=== PATIENT | female | born 1975 | race Caucasian/White ===

== ENCOUNTER 2017-05-19 19:21 | Emergency (ER) | payer OTHER, SELFPAY ==
[2017-05-19 20:01] LABS: #Basophils 0.1 thou/uL (0.0-0.2); #Eosinphils 0.2 thou/uL (0.0-0.7); #Lymphocytes 2.3 thou/uL (1.20-3.40); #Monocytes 0.7 thou/uL (0.11-0.59); #Neutrophils 7.6 thou/uL (1.40-6.50); %Basophils 0.5 % (0.0-1.0); %Eosinophils 2.1 % (0.0-10.0); %Lymphocytes 21.5 % (21.0-51.0); %Monocytes 6.5 % (0.0-10.0); %Neutrophils 69.3 % (42.0-75.0); Hemoglobin 14.9 g/dL (12.0-16.0); Mean Corpuscular HGB CONC 34.5 g/dL (32.0-36.0); Mean Corpuscular Hemoglobin 32.7 pg (27.0-31.0); Mean Platelet Volume 6.7 fL (7.4-10.4); Platelet Count 482 thou/uL (130-400); Red Blood Cell (RBC) Count 4.54 mill/uL (4.20-5.40); White Blood Cell (WBC) Count 10.9 thou/uL (4.8-10.8)
[2017-05-19 20:27] LABS: ALT (SGPT) 32 U/L (8-55); AST (SGOT) 21 U/L (5-34); Albumin 4.2 g/dL (3.5-5.0); Alkaline Phosphatase 69 U/L (40-150); Anion Gap 10 mmol/L (10-20); BUN (Urea Nitrogen) 12 mg/dL (7.0-18.7); Bilirubin, Total 0.3 mg/dL (0.2-1.2); Calc. Creatinine Clearance 0 mL/min (70-130); Calcium 9.3 mg/dL (7.8-10.44); Carbon Dioxide 27 mmol/L (22-29); Chloride 106 mmol/L (98-107); Estimated GFR-MDRD Greater than 90; Globulin 3.4 g/dL (2.4-3.5); Glucose 99 mg/dL (70-105); Potassium 3.8 mmol/L (3.5-5.1); Protein, Total 7.6 g/dL (6.0-8.3); Sodium 139 mmol/L (136-145)
[2017-05-19 21:10] LABS: Bilirubin Negative (Negative); Blood, Urine Negative (Negative); Clarity CLOUDY (Clear); Glucose, Urine (Dipstick) Negative (Negative); Leukocyte Moderate (Negative); Nitrite Negative (Negative); Protein, Urine (Dipstick) Negative (Neg-Trace); Specific Gravity, Urine 1.025 (1.002-1.036); Urobilinogen 0.2 mg/dL (0.2-1.0); pH, Urine 6.5 (5.0-9.0)
[2017-05-19 21:13] LABS: Bacteria/HPF 1+ HPF (None Seen); Hyaline Casts/LPF 0-3 HYALINE CAST LPF (0-3 Hyaline); Pathc Cast-AUWi Flag 0.54 (0-2.49); RBC/HPF 0-3 HPF (0-3); WBC/HPF 21-50 HPF (0-3)
[2017-05-19 21:44] LABS: BHCG - Serum Negative (NEGATIVE); Pregs Control Background? CLEAR/WHITE (CLR/WHITE); Pregs Control Bar Appear? YES (CONTROL BAR)
[2017-05-19] MEDS ORDERED: Ketorolac Tromethamine 30 MG/ML VIAL ONE (23:11)
[2017-05-19] MEDS ORDERED: Ondansetron HCl/PF 4 MG/2 ML Vial ONE (23:11)
--- NOTE | 2017-05-19 23:12 | ULT ---
PELVIC ULTRASOUND: Technique: Transabdominal and endovaginal ultrasound of the pelvis performed. History: Pelvic pain. Patient is post hysterectomy. Patient is also post left oophorectomy. FINDINGS: The cervix appears to be retained and there is nabothian cyst in the cervical remnant measuring appro ximately 1 to 1.5 cm. The right ovary is identified. There is a follicular type cyst in the right ovary measures approximat aida 1.5 cm. There is a large somewhat complex cystic mass in the left adnexa measuring 6 to 9 cm. Etiology is not apparent on this exam. IMPRESSION: 1. Large complex cystic mass in the left adnexa. Technologist gives a history of prior left oophorect alejandra. Recommend clinical correlation regarding the history. 2. There is a right ovary identified and small right follicular cyst noted. 3. Patient appears to have a retained cervix with nabothian cyst in this cervix. POS: [facility]
== END 2017-05-20 01:09 | disposition home or self-care (01) ==
LOC: ERS 19:21
DX: R19.00 Intra-abdominal and pelvic swelling, mass and lump, unspecified site (principal); I10 Essential (primary) hypertension; Z79.899 Other long term (current) drug therapy
CPT/HCPCS: 36415; 76856; 80053; 81003; 81015; 84703; 85025; 93976; 96361; 96372; 96374; 96375; J1885; J2405

== ENCOUNTER 2018-06-01 09:01 | Outpatient (CLI) | payer OTHER | END 2018-06-01 09:02 | disposition home or self-care (01) | LOC: BICMAMMO 09:01 | PROVIDERS: ATTEND Family Medicine | DX: Z12.31 Encounter for screening mammogram for malignant neoplasm of breast (principal) | CPT/HCPCS: 77063; 77067 ==

== ENCOUNTER 2018-12-30 09:37 | Outpatient (CLI) | payer BC ==
--- NOTE | 2018-12-30 10:44 | ULT ---
TRANSABDOMINAL TRANSVAGINAL PELVIC ULTRASOUND DATE:: 12/30/2018 12:00 AM CLINICAL HISTORY: Left lower quadrant abdominal pain off and on; history of left oophorectomy 11 year s ago. COMPARISON: Prior pelvic ultrasound dated May 19, 2017 and July 22, 2016 comparison was also mad e with a CT the abdomen and pelvis dated July 22, 2016 TECHNIQUE: Grayscale, color Doppler and spectral Doppler images were obtained of the pelvis see a tra nsabdominal transvaginal approach Uterus: Surgically absent. There are nabothian cysts seen within the residual cervix. Ovaries: Size: right measures 3.2 x 2.7 x 2.6 cm cm; left ovary is reportedly surgically absent. Mass: There is a complex cystic mass in the region of the left adnexa measuring 4.3 x 3.9 x 2.7 cm wi th vascular flow documented within the solid components of the mass. The complex cystic mass in the left adnexa previously measured 7.6 x 5.6 cm. Flow: Normal flow to the right ovary Cul-de-sac: No free fluid IMPRESSION: Persistent complex cystic mass within the region of the left adnexa. The complex cystic mass has slig htly decreased in size now measuring 4.3 x 3.9 x 2.7 cm whereas it previously measured 7.6 x 5.6 cm. The persistence of a complex cystic mass is somewhat concerning for residual malignancy with the patient's history of a left oophorectomy. Would recommend a follow-up MRI of the pelvis with and without contrast for better interrogation of this lesion. Small nabothian cyst seen within the residual cervix. Changes of hysterectomy.
== END 2018-12-30 09:38 | disposition home or self-care (01) ==
LOC: BICULT 09:37
PROVIDERS: ATTEND Nurse Practitioner Family
DX: R10.32 Left lower quadrant pain (principal); N83.8 Other noninflammatory disorders of ovary, fallopian tube and broad ligament; N88.8 Other specified noninflammatory disorders of cervix uteri; Z90.710 Acquired absence of both cervix and uterus
CPT/HCPCS: 76856

== ENCOUNTER 2019-02-01 06:22 | Inpatient (IN) | payer BC ==
[2019-02-01 07:06] LABS: #Basophils 0.1 thou/uL (0.0-0.2); #Eosinphils 0.1 thou/uL (0.0-0.7); #Lymphocytes 1.7 thou/uL (1.20-3.40); #Monocytes 0.5 thou/uL (0.11-0.59); #Neutrophils 10.2 thou/uL (1.40-6.50); %Basophils 0.4 % (0.0-1.0); %Eosinophils 0.7 % (0.0-10.0); %Lymphocytes 13.8 % (21.0-51.0); %Monocytes 4.2 % (0.0-10.0); %Neutrophils 80.9 % (42.0-75.0); Hemoglobin 15.2 g/dL (12.0-16.0); Mean Corpuscular Hemoglobin 31.3 pg (27.0-31.0); Mean Corpuscular Volume 92.1 fL (78.0-98.0); Mean Platelet Volume 6.7 fL (7.4-10.4); Platelet Count 525 thou/uL (130-400); Red Blood Cell (RBC) Count 4.83 mill/uL (4.20-5.40); White Blood Cell (WBC) Count 12.6 thou/uL (4.8-10.8)
[2019-02-01 07:13] LABS: ALT (SGPT) 17 U/L (8-55); AST (SGOT) 12 U/L (5-34); Albumin 4.4 g/dL (3.5-5.0); Alkaline Phosphatase 62 U/L (40-110); Anion Gap 12 mmol/L (10-20); BUN (Urea Nitrogen) 8 mg/dL (7.0-18.7); Bilirubin, Total 0.4 mg/dL (0.2-1.2); Calc. Creatinine Clearance 0 mL/min (70-130); Calcium 9.3 mg/dL (7.8-10.44); Carbon Dioxide 27 mmol/L (22-29); Chloride 100 mmol/L (98-107); Estimated GFR-MDRD Greater than 90; Globulin 3.2 g/dL (2.4-3.5); Glucose 116 mg/dL (70-105); Potassium 3.9 mmol/L (3.5-5.1); Protein, Total 7.6 g/dL (6.0-8.3); Sodium 135 mmol/L (136-145)
[2019-02-01] MEDS ORDERED: diphenhydrAMINE 50 MG/ML VIAL ONE (07:40)
[2019-02-01] MEDS ORDERED: Morphine 4 MG/ML VIAL ONE (07:40)
[2019-02-01] MEDS ORDERED: Ondansetron PF 4 MG/2 ML Vial ONE (07:42)
[2019-02-01 08:17] LABS: Bacteria/HPF None Seen HPF (None Seen); Bilirubin Negative (Negative); Blood, Urine Negative (Negative); Clarity Clear (Clear); Glucose, Urine (Dipstick) Normal (Negative); Leukocyte 25 Leu/uL (Negative); Nitrite Negative (Negative); Protein, Urine (Dipstick) Negative (Neg-Trace); RBC/HPF 0-3 HPF (0-3); Squamous Epithelial 0-3 HPF (0-3); Urobilinogen Normal mg/dL (Less than 2); WBC/HPF 0-3 HPF (0-3)
--- NOTE | 2019-02-01 08:30 | CT ---
CT of abdomen and pelvis: 02/01/2019 COMPARISON: None available HISTORY: Left-sided flank pain TECHNIQUE: Axial CT imaging is obtained at 5 mm intervals from the lung bases through the pubic symph ysis with IV contrast. Coronal and sagittal reformatted imaging obtained. FINDINGS: The imaged lung bases are unremarkable. No free intraperitoneal air or fluid is seen. The liver, gallbladder, spleen, pancreas, adrenal glands, and kidneys demonstrate no acute findings. There is a tiny hypodensity in the lower pole of the left kidney measuring 6 mm. Evaluation of the bowel is limited without oral contrast media. There is no evidence for bowel inflam matory change or bowel obstruction. The appendix is unremarkable. There is a lobulated cystic mass in the left adnexal region which appears ovarian in origin, measurin g approximately 5.7 x 5.1 x 4.1 cm. This left sided cystic pelvic mass is better assessed on pelvic ultrasound performed on 01/30/2019. Vascular structures of the abdomen/pelvis appear patent. No acute osseous abnormality is evident. The re is disc space narrowing with posterior osteophyte formation and vacuum disc formation at the L5-S1 level. There is multilevel lower lumbar spine facet hypertrophy. IMPRESSION: Stable lobulated cystic left pelvic mass, better assessed on the pelvic ultrasound perfor med 01/30/2019.
[2019-02-01] MEDS ORDERED: Fentanyl 100 MCG/2 ML VIAL ONE (08:38)
[2019-02-01] MEDS ORDERED: ISOVUE-370 76%-LOCM 1 ML ONE (10:22)
[2019-02-01 10:38] VITALS: BMI 36.3
[2019-02-01] MEDS ORDERED: Lisinopril 20 MG TAB PO SCH (11:30)
[2019-02-01] MEDS ORDERED: Morphine 2 MG/ML SYRINGE SLOW IVP PRN (11:35)
--- NOTE | 2019-02-01 11:42 | HP ---
REGULAR PHYSICIAN: Shane Strong MD CHIEF COMPLAINT: Persistent pelvic pain. HISTORY OF PRESENT ILLNESS: Ms. Gibson is a 43-year-old white G3, P2, who was admitted just this week in with complaints of persistent pelvic pain. She was treated with IV pain medicine and was sent home with Vicodin. It is uncertain whether she filled this or not, but she returns to the ER with almost identical complaints this morning complaining of 10/10 pelvic pain. Of note is the fact that Dr. Strong has her scheduled for surgery on Friday. The patient has longstanding pelvic pain and has a known pelvic mass, most likely an endometrioma. I have spoke with Dr. Strong and he has asked me to admit her for pain control in preparation for her surgery on Friday. PAST OBSTETRIC AND GYNECOLOGIC HISTORY: She has had 2 vaginal deliveries as well as 1 . Of note is she apparently had an ovarian cystectomy by Dr. Luiz Vega many years ago, followed by a supracervical hysterectomy by Dr. Strong. She states that the right ovary was retained. PAST MEDICAL HISTORY: Includes type 2 diabetes for which she is currently not on medication, chronic hypertension, and anxiety. CURRENT MEDICATIONS: Include lisinopril 40 mg daily. ALLERGIES: SHE REPORTS ITCHING TO VICODIN. SOCIAL HISTORY: Denies tobacco, alcohol, or drug use. FAMILY HISTORY: Remarkable for Crohn disease as well as diabetes. REVIEW OF SYSTEMS: Denies fever, chills, nausea, or vomiting. PHYSICAL EXAMINATION: VITAL SIGNS: On admission on the floor, blood pressure 171/88, pulse is 76, temperature 99.1, with 93% oxygenation on room air. GENERAL: She appears uncomfortable, but is in no acute distress. CHEST: Clear to auscultation. CARDIOVASCULAR: Regular rate and rhythm. ABDOMEN: Soft, slightly obese. There is no guarding or rebound. PELVIC: Deferred. LABORATORY DATA: Laboratories from this morning show white count of 12.6, hemoglobin and hematocrit 15 and 44 respectively with a platelet count of 525,000. Sodium 135, potassium 3.9, creatinine 0.66, glucose 116. Her urinalysis is negative. A CT done in the emergency room this morning shows a left-sided pelvic mass with dimensions of 5 x 5 x 4 cm. There is no evidence of ruptured viscus. ASSESSMENT: 1. Persistent pelvic pain. 2. History of endometriosis, now with suspected endometrioma. PLAN: I have admitted the patient per Dr. Strong's instructions. She has her surgery slated for Friday. Dr. Strong will write preoperative orders along with potential bowel prep. Dr. Strong has asked me to also order a CA-125 and this is pending. Job ID: [id number]
[2019-02-01] MEDS: Lactated Ringer's 1,000 ML IV SCH ×2 (11:55→21:19)
[2019-02-01] MEDS: Morphine 4 MG/ML VIAL SLOW IVP PRN ×4 (12:02→22:52)
--- NOTE | 2019-02-02 05:49 | PDOC.EVN ---
Event Note - Event Note Event Note: Sleeping this AM. Has only requested 1 dose of pain med during hourly shift manager. VSS AF Dr. Strong to see today and preop for surgery tomorrow.
[2019-02-02] MEDS: Morphine 4 MG/ML VIAL SLOW IVP PRN (06:04)
[2019-02-02] MEDS: Lactated Ringer's 1,000 ML IV SCH ×2 (06:05→16:46)
[2019-02-02] MEDS ORDERED: FLU VACC QS2019-20(6MOS UP)/PF 60 MCG/0.5 ML SYRINGE IM ONE (09:00)
[2019-02-02] MEDS: Lisinopril 20 MG TAB PO SCH (09:54)
--- NOTE | 2019-02-02 12:05 | PRG ---
DATE OF SERVICE: 02/02/2019 TIME OF SERVICE: 08:30. SUBJECTIVE: The patient is resting comfortably. She has required minimal morphine for pain control. She complains of constipation. OBJECTIVE: VITAL SIGNS: Temperature 98.5, pulse 71, respirations 20, and blood pressure 146/85. HEENT: Within normal limits. LUNGS: Clear to auscultation bilaterally. HEART: Regular rate and rhythm. ABDOMEN: Soft and nontender. Bowel sounds in all 4 quadrants. EXTREMITIES: No clubbing, cyanosis, or edema. IMPRESSION: Peritoneal versus ovarian cyst with history of endometriosis and pelvic adhesions. Admitted for pain control prior to surgery scheduled for 02/03. PLAN: Regular diet on this morning and lunch. Clear liquids after lunch. GoLYTELY beginning this evening. Laparoscopic versus open bilateral salpingo-oophorectomy on 02/03. Job ID: [id number]
[2019-02-02] MEDS: Ondansetron PF 4 MG/2 ML Vial IVP PRN ×2 (13:26→20:45)
[2019-02-02] MEDS ORDERED: CEFAZOLIN 2 GM in Premix Bag 1 BAG IVPB SCH (14:15)
[2019-02-02] MEDS ORDERED: GoLYTELY 4,000 ml Bottle PO SCH (18:00)
[2019-02-02] MEDS ORDERED: Promethazine HCl 12.5 MG in Sodium Chloride 0.9% 50 ML IVPB PRN (21:37)
[2019-02-02] MEDS ORDERED: Simethicone Chewable 80 MG TAB PO PRN (21:39)
[2019-02-03] MEDS: Lactated Ringer's 1,000 ML IV SCH ×2 (04:12→16:26)
[2019-02-03] MEDS: Morphine 4 MG/ML VIAL SLOW IVP PRN ×2 (04:13→07:55)
[2019-02-03] MEDS: Lisinopril 20 MG TAB PO SCH (07:53)
[2019-02-03] MEDS ORDERED: Fleet Enema 133 ML BOT FS SCH (09:45)
[2019-02-03] MEDS ORDERED: Bupivacaine/Epinephrine 0.25% 30 ML VIAL ONE (13:48)
[2019-02-03] MEDS ORDERED: Promethazine HCl 25 MG/ML VIAL ONE (13:56)
[2019-02-03] MEDS ORDERED: HYDROmorphone 0.5 MG/0.5 ML SYRINGE ONE (13:56)
[2019-02-03] MEDS ORDERED: Midazolam HCl 2 mg/2 ml Vial ONE (13:56)
[2019-02-03] MEDS ORDERED: Fentanyl 100 MCG/2 ML VIAL ONE ×2 (13:56→17:31)
[2019-02-03] MEDS ORDERED: Ondansetron HCl/PF 4 MG/2 ML Vial IVP PRN ×2 (14:40→17:22)
[2019-02-03] MEDS ORDERED: Promethazine HCl 25 MG/ML VIAL SLOW IVP PRN (14:40)
[2019-02-03] MEDS ORDERED: Promethazine HCl 25 MG/ML VIAL IM PRN ×4 (14:40→17:21)
[2019-02-03] MEDS ORDERED: HYDROmorphone 2 MG/ML VIAL SLOW IVP PRN (14:40)
[2019-02-03] MEDS ORDERED: Isosulfan Blue 50 MG/5 ML VIAL ONE (15:41)
[2019-02-03] MEDS ORDERED: Methylene Blue 50 MG/10 ML AMPUL ONE (15:41)
[2019-02-03] MEDS ORDERED: Naloxone HCl 0.4 mg/ml Vial IV PRN ×2 (16:18→17:21)
[2019-02-03] MEDS ORDERED: diphenhydrAMINE 25 MG CAP PO PRN ×2 (16:18→17:21)
[2019-02-03] MEDS ORDERED: HYDROmorphone 10 mg/100 ml CADD IVPB PRN (16:18)
[2019-02-03] MEDS ORDERED: diphenhydrAMINE 50 MG/ML VIAL IVP PRN ×2 (16:18→17:21)
[2019-02-03] MEDS ORDERED: Ondansetron PF 4 MG/2 ML Vial IVP PRN ×3 (16:18→17:21)
[2019-02-03] MEDS ORDERED: Zolpidem Tartrate 5 MG TAB PO PRN ×2 (16:18→17:21)
[2019-02-03] MEDS ORDERED: diphenhydrAMINE 50 MG/ML VIAL IM PRN ×2 (16:18→17:21)
[2019-02-03] MEDS ORDERED: Communication Order-Pharmacy FS SCH ×2 (16:30→17:30)
[2019-02-03] MEDS ORDERED: Dexamethasone 20 MG/5 ML VIAL ONE (16:33)
[2019-02-03] MEDS ORDERED: Ketorolac Tromethamine 30 MG/ML VIAL ONE (16:33)
[2019-02-03] MEDS ORDERED: PHENYLEPHRINE-NS 100 MCG/ML 10 ML SYRINGE ONE (16:33)
[2019-02-03] MEDS ORDERED: Glycopyrrolate 0.2 MG/ML 5 ML SYRINGE ONE (16:33)
[2019-02-03] MEDS ORDERED: Lidocaine 1% PF 5 ML VIAL ONE (16:33)
[2019-02-03] MEDS ORDERED: Rocuronium Bromide 10 MG/ML (10ML VIAL) ONE (16:33)
[2019-02-03] MEDS ORDERED: Ondansetron PF 4 MG/2 ML Vial ONE (16:33)
[2019-02-03] MEDS ORDERED: Simethicone Chewable 80 MG TAB PO PRN (16:57)
[2019-02-03] MEDS ORDERED: Sodium Chloride 0.9% 100 ML ONE (17:14)
[2019-02-03] MEDS ORDERED: CEFAZOLIN 1 GM VIAL ONE (17:14)
[2019-02-03] MEDS ORDERED: ceFAZolin 1 GM/D5W 1 GM in Premix Bag 1 BAG IVPB SCH (17:15)
[2019-02-03] MEDS ORDERED: fentaNYL Citrate/PF 2,000 MCG in Sodium Chloride 0.9% 60 ML IV PRN (17:21)
[2019-02-03] MEDS: Sodium Chloride 0.9% 1,000 ML IV SCH ×2 (18:22→20:09)
[2019-02-03] MEDS: Ketorolac Tromethamine 30 MG/ML VIAL IVP SCH (18:48)
--- NOTE | 2019-02-03 23:20 | OP ---
DATE OF PROCEDURE: 02/03/2019 PREOPERATIVE DIAGNOSES: Complex left adnexal mass, status post supracervical hysterectomy with a history of endometriosis, pelvic adhesions and chronic pelvic pain with acute exacerbation. POSTOPERATIVE DIAGNOSES: Complex left adnexal mass, status post supracervical hysterectomy with a history of endometriosis, pelvic adhesions and chronic pelvic pain with acute exacerbation, probable left ovarian serous cystadenoma. PROCEDURES PERFORMED: Laparoscopic bilateral salpingo-oophorectomy with exploratory laparotomy for completion of procedure and cystourethroscopy. VALVE INSERTER: Beatriz Leal PA-C ANESTHESIA: General endotracheal. ESTIMATED BLOOD LOSS: 150-200 mL. DRAINS: Shanks to gravity. COMPLICATIONS: Dense adhesions with persistent oozing in left ovarian fossa, rendered hemostatic with FloSeal. DISPOSITION: Recovery room in good condition. MEDICATIONS: 2 g Ancef preincision, redosed 3 hours later. DESCRIPTION OF PROCEDURE: After obtaining appropriate informed consent, the patient was taken to the operating room, where general endotracheal anesthesia was achieved without difficulty. The patient was prepped and draped in dorsal lithotomy in Teddy stirrups. Sliding speculum was placed in the vagina. Cervix identified. A Hulka manipulator was placed as she was noted to have remnant cervix status post TLA, supracervical hysterectomy. Shanks catheter was placed and clear fluid was noted. Proof Carrier changed his gloves, turned attention to abdominal portion of the procedure. 5 mL of Marcaine injected above the umbilicus. Veress needle was placed inside the abdominal cavity, insufflation was carried out with carbon dioxide after a pressure of 15 was reached. An 11 mm Lizbeth non cutting trocar was introduced supraumbilically in the midline. Entry into the peritoneal cavity was noted. No trauma to the underlying viscera was noted. Omental adhesions to the anterior abdominal wall were identified. An open area on the patient's left side lateral to the epigastric vessels and the umbilicus was noted. An 8 mm trocar placed. Omental adhesions were taken down in the normal manner and then a right lateral da Amado trocar was placed and a 5 mm assistant professor of psychology port in the right upper quadrant was placed. The patient was placed in steep Trendelenburg position. The operative findings were noted. Dense adhesions of the sigmoid colon to the left adnexum were noted. Thin filmy adhesions on that side were taken down, as well as thin filmy adhesions of the adnexa on the left from the left pelvic sidewall. Adhesions from the left adnexa to the remaining cervical stump and bladder were taken down. 6 cm cyst was identified. It was entered inadvertently intraoperatively. No excrescences were noted inside. It was mobilized off the left pelvic sidewall. Intraoperatively, taking down the dense adhesions between the ovary and the rectosigmoid colon, Dr. Sorensen was called to the room. He came in and provided instruction and guidance, and observed the areas where it has been taken down. He felt there was no evidence of extrinsic injury to the bowel and left the room. Attention was turned at this time to the right adnexa. The ovary and tube were identified, and wall somewhat adherent to the pelvic sidewall from previous endometriosis were able to be taken down with relative ease compared to the left. These were detached and placed in the cul-de-sac for retrieval. Attention was then turned back again to the left side as the dense adhesions of the adnexa were taken down from the left pelvic sidewall. Areas of varicosities and bleeding at the level of the infundibulopelvic ligament were encountered. The ovary was eventually completely detached and placed in the cul-de-sac for retrieval. Suction and irrigation continued to be carried out and using bipolar cautery, attempt at rendering hemostasis was made at the level of IP and ovarian fossa on the left, however, no satisfactory hemostasis could be achieved. Because of the location of ureter, which was unable to be visualized due to the patient's morbid obesity but concerns about injury with further thermal cautery. Decision was made to go ahead and proceed with a vertical midline laparotomy. The da Amado was undocked. Instruments removed and this was performed from just above the symphysis pubis to approximately 4 cm below the umbilicus. The abdomen was entered and Feliciano O retractor placed inside. Bowel was packed out of the way. Adnexa were retrieved x4, two fallopian tubes and two ovaries. The areas of bleeding in the pelvic sidewall were identified and irrigated out. Bleeding had noted to be decreased significantly, was still present. FloSeal was applied and pressure was applied with a moist laparotomy sponge for 4 minutes. After 4 minutes had passed, nose area bleeding was noted in the IP and ovarian fossa on the left. FloSeal which had been intent to be used laparoscopically was then applied across the rest of the raw surfaces and no other areas of significant bleeding were noted. The patient was administered methylene blue and the concrete tile machine operator went down between the patient's legs and removed the Shanks catheter. Cystourethroscopy was carried out with photo documentation of good ureteral efflux bilaterally. No evidence of bladder injury was noted. Proof Carrier replaced the Shanks and changed gloves and gown, returned to the abdomen. All lap and sponges were removed and were accounted for with the count. Feliciano O was removed and the fascia was reapproximated using running continuous 0 PDS loop. Subcutaneous tissue irrigated and rendered hemostatic with Bovie cautery, reapproximated using 2-0 plain gut. Skin reapproximated with skin sherrie at the vertical midline incision, as well as all laparoscopic trocars. Counts were correct. The patient was awakened and extubated to recovery room in good condition. Job ID: [id number]
[2019-02-04] MEDS: Ketorolac Tromethamine 30 MG/ML VIAL IVP SCH ×4 (00:16→19:15)
[2019-02-04] MEDS: Sodium Chloride 0.9% 1,000 ML IV SCH ×2 (05:41→19:20)
[2019-02-04 05:58] LABS: Hemoglobin 12.5 g/dL (12.0-16.0); Mean Corpuscular Hemoglobin 29.6 pg (27.0-31.0); Mean Corpuscular Volume 92.4 fL (78.0-98.0); Mean Platelet Volume 6.6 fL (7.4-10.4); Platelet Count 453 thou/uL (130-400); Red Blood Cell (RBC) Count 4.23 mill/uL (4.20-5.40); White Blood Cell (WBC) Count 16.7 thou/uL (4.8-10.8)
--- NOTE | 2019-02-04 12:01 | PRG ---
DATE OF SERVICE: 02/04/2019 TIME OF SERVICE: 11:30. SUBJECTIVE: The patient is sitting in chair. She states her pain is under good control. She used moderate amount of Dilaudid with her LABORER GOLD LEAF overnight. She has no complaints of nausea or vomiting. Shanks is out since she has voided. OBJECTIVE: VITAL SIGNS: Temperature 99.5, pulse 107, respirations 20, blood pressure 120/69. HEENT: Within normal limits. LUNGS: Clear to auscultation bilaterally. HEART: Regular rate and rhythm. ABDOMEN: Soft and nontender. Incisions are all dry. She has hypoactive bowel sounds in all 4 quadrants. EXTREMITIES: Without clubbing, cyanosis, or edema. LABORATORY DATA: Hematocrit decreased from 44% to 39% postoperatively. I's and O's, the patient had over 1000 mL of urine output postoperatively before Shanks was discontinued. IMPRESSION: Status post bilateral salpingo-oophorectomy with dense adhesions, endometriosis and pain. Procedure was DA Amado laparoscopic converted to open. PLAN: Continue routine post laparotomy operative care with advancement of diet. Hopefully, the patient's pain will allow for discontinuation of Dilaudid LABORER GOLD LEAF within the next 12 to 24 hours. Job ID: [id number]
[2019-02-04] MEDS ORDERED: HYDROcodone/Acetaminophen 10/325 mg Tablet PO PRN ×2 (16:51)
[2019-02-05] MEDS: Ketorolac Tromethamine 30 MG/ML VIAL IVP SCH ×2 (00:04→06:03)
--- NOTE | 2019-02-05 07:19 | DIS ---
DATE OF ADMISSION: 02/01/2019 DATE OF DISCHARGE: 02/05/2019 SUMMARY OF HOSPITAL COURSE: Ms. Gibson is admitted with intractable pain on the left side of the pelvis associated with an ovarian cyst and a history of endometriosis. She was admitted on 02/01. On 02/03, she underwent a laparoscopic bilateral salpingo-oophorectomy with da Amado robot and exploratory laparotomy with cystoscopy. See the associated operative note for full description. Findings were consistent with endometriosis and serous cystadenoma. The patient has had a remarkably easy postoperative course and has been off TEACHER EMOTIONALLY IMPAIRED for approximately 24 hours. She is doing well, tolerating p.o. and passing gas. VITAL SIGNS: Temperature 98.3, pulse 87, respirations 18, blood pressure 140/92. HEENT: Within normal limits. LUNGS: Clear to auscultation bilaterally. HEART: Regular rhythm. ABDOMEN: Soft and nontender. Bowel sounds in all 4 quadrants. All incisions are intact and dry with sherrie. Perineum is dry. EXTREMITIES: No clubbing, cyanosis, or edema. The patient will be discharged home. The patient already has [place] prescription sent 6 days ago to the pharmacy, which she has not picked up, but she will get this and utilize it. She will follow up at [facility] [place] in 1 week for staple removal, in 6 weeks for followup with me. We will follow up her pathology at that time. Job ID: [id number]
[2019-02-05 07:44] VITALS: BP 141/91; TEMP 98.2
== END 2019-02-05 10:25 | disposition home or self-care (01) | DRG 743 ==
LOC: ERS 06:22 → 3SE 08:40
PROVIDERS: ADMIT Obstetrics & Gynecology; ATTEND Obstetrics & Gynecology
PROC: 0UT20ZZ Resection of Bilateral Ovaries, Open Approach (ICD-10-PCS; principal; 2019-02-03)
PROC: 0UT70ZZ Resection of Bilateral Fallopian Tubes, Open Approach (ICD-10-PCS; 2019-02-03)
PROC: 0UJ84ZZ Inspection of Fallopian Tube, Percutaneous Endoscopic Approach (ICD-10-PCS; 2019-02-03)
PROC: 0UJ34ZZ Inspection of Ovary, Percutaneous Endoscopic Approach (ICD-10-PCS; 2019-02-03)
PROC: 8E0W0CZ Robotic Assisted Procedure of Trunk Region, Open Approach (ICD-10-PCS; 2019-02-03)
PROC: 0TJB8ZZ Inspection of Bladder, Via Natural or Artificial Opening Endoscopic (ICD-10-PCS; 2019-02-03)
DX: D27.1 Benign neoplasm of left ovary (principal); N80.9 Endometriosis, unspecified; K59.00 Constipation, unspecified; N73.6 Female pelvic peritoneal adhesions (postinfective); E66.01 Morbid (severe) obesity due to excess calories; Z68.36 Body mass index [BMI] 36.0-36.9, adult
CPT/HCPCS: 36415; 36416; 74177; 76856; 80053; 81003; 81015; 85025; 85027; 86304; 88305; 96361; 96374; 96375; 96376; G0378; J0690; J1170; J1200; J1885; J2250; J2270; J2405; J2550; J3010; J3490; Q0163; Q0169; Q9968

== ENCOUNTER 2020-05-16 22:21 | Observation (INO) | payer OTHER ==
--- NOTE | 2020-05-16 22:48 | RAD ---
EXAM: CHEST ONE VIEW HISTORY: Chest pain with pain radiating to back. COMPARISON: 05/08/2018 FINDINGS: The cardiac silhouette and pulmonary vasculature are within normal limits. Persistent elevation right hemidiaphragm is present. Lungs remain clear. Degenerative changes noted in the spine. IMPRESSION: No acute cardiopulmonary process.
[2020-05-16 23:03] LABS: #Eosinphils 0.1 thou/uL (0.0-0.7); #Lymphocytes 2.2 thou/uL (1.20-3.40); #Monocytes 0.6 thou/uL (0.11-0.59); #Neutrophils 6.7 thou/uL (1.40-6.50); %Basophils 0.5 % (0.0-1.0); %Eosinophils 1.4 % (0.0-10.0); %Neutrophils 69.1 % (42.0-75.0); Mean Corpuscular HGB CONC 33.3 g/dL (32.0-36.0); Mean Corpuscular Hemoglobin 30.6 pg (27.0-31.0); Mean Corpuscular Volume 91.8 fL (78.0-98.0); Mean Platelet Volume 6.8 fL (7.4-10.4); Platelet Count 527 thou/uL (130-400); RBC Distribution Width 11.1 % (11.5-14.5); Red Blood Cell (RBC) Count 4.57 mill/uL (4.20-5.40); White Blood Cell (WBC) Count 9.7 thou/uL (4.8-10.8)
[2020-05-16 23:22] LABS: ALT (SGPT) 30 U/L (8-55); AST (SGOT) 21 U/L (5-34); Alkaline Phosphatase 68 U/L (40-110); Anion Gap 12 mmol/L (10-20); BUN (Urea Nitrogen) 12 mg/dL (7.0-18.7); Bilirubin, Total 0.2 mg/dL (0.2-1.2); Calc. Creatinine Clearance 0 mL/min (70-130); Calcium 8.8 mg/dL (7.8-10.44); Carbon Dioxide 27 mmol/L (22-29); Chloride 105 mmol/L (98-107); Globulin 3.6 g/dL (2.4-3.5); Glucose 108 mg/dL (70-105); Potassium 3.6 mmol/L (3.5-5.1); Protein, Total 7.6 g/dL (6.0-8.3); Sodium 140 mmol/L (136-145)
--- NOTE | 2020-05-17 07:12 | PDOC.HHP ---
Hospitalist HPI chest pain History of Present Illness: this is a 43-year-old female patient history of hypertension who presents with chest pain. She notes that for the past month she has been having intermittent chest pains which have been brief however today was a little more severe on the left side radiating to her left shoulder and was persistent. She noted associated diaphoresis but no nausea. Did not seem to be any relieving or aggravating factors. These occurred while she was at work. She has a strong family history of coronary disease in her father and her uncles EMS was activated and she was brought in for further evaluation. On arrival blood pressure was 136/97, pulse 100, respiratory 21, temperature 98.2 and saturating 97% on room air. Labs showed a troponin of 0.01, unremarkable BMP, CBC also generally within normal limits.. Chest x-ray showed no acute cardiopulmonary process and her EKG showed no acute ST or T wave changes. She received 25 mg aspirin en route per EMS. The calculated heart score was 4. Hospitalist team was consulted for admission. Allergies/Adverse Reactions: Allergy/AdvReac Type Severity Reaction Status Date / Time morphine Allergy Intermediate Verified 02/01/19 11:32 Home Medications: Medication Instructions Recorded Confirmed Type Ibuprofen [Motrin] 800 mg PO Q8H #30 tab 01/31/19 02/04/19 Rx Promethazine [Phenergan] 12.5 mg PO Q6H PRN #20 tab 01/31/19 02/01/19 Rx HYDROcodone Bit/APAP 10/325 [Antoine] 1 tab PO Q6H PRN tab 02/05/19 Rx HYDROcodone Bit/APAP 10/325 [Antoine] 2 tab PO Q6H PRN tab 02/05/19 Rx DULoxetine HCl [Cymbalta] 60 mg PO DAILY 05/17/20 05/17/20 History Lisinopril 40 mg PO DAILY 05/17/20 05/17/20 History Past History: PMHx:Hypertension, Endometriosis PSHx:Hysterectomy FHx:Heart disease Social:No alcohol, smoking or illicit drug use history Hospitalist HPI ROS Constitutional: denies: fever, chills, sweats Cardiovascular: denies: chest pain, orthopnea, paroxysmal noc. dyspnea Gastrointestinal: denies: nausea, vomiting, abdominal pain Neurological: denies: weakness, numbness, incoordination All other systems reviewed; all pertinent +/- noted in HPI/Subj Hospitalist Exam General Appearance: awake alert Eye: PERRL, anicteric sclera ENT: dry oral mucosa Heart: RRR, no murmur, no gallops Respiratory: CTAB, no wheezes, no rales Gastrointestinal: soft, non-tender, non-distended, normal bowel sounds Extremities: no cyanosis, no clubbing, no edema Neurological: cranial nerve grossly intact, no weakness Psychiatric: normal affect, A&O x 3 Hospitalist Results Result Diagrams: 05/16/20 22:48 05/16/20 22:48 Lab results: Laboratory Last Values WBC 9.7 thou/uL (4.8-10.8) 05/16/20 22:48 RBC 4.57 mill/uL (4.20-5.40) 05/16/20 22:48 Hgb 14.0 g/dL (12.0-16.0) 05/16/20 22:48 Hct 42.0 % (36.0-47.0) 05/16/20 22:48 MCV 91.8 fL (78.0-98.0) 05/16/20 22:48 MCH 30.6 pg (27.0-31.0) 05/16/20 22:48 MCHC 33.3 g/dL (32.0-36.0) 05/16/20 22:48 RDW 11.1 % (11.5-14.5) L 05/16/20 22:48 Plt Count 527 thou/uL (130-400) H 05/16/20 22:48 MPV 6.8 fL (7.4-10.4) L 05/16/20 22:48 Neutrophils % 69.1 % (42.0-75.0) 05/16/20 22:48 Lymphocytes % 23.0 % (21.0-51.0) 05/16/20 22:48 Monocytes % 6.0 % (0.0-10.0) 05/16/20 22:48 Eosinophils % 1.4 % (0.0-10.0) 05/16/20 22:48 Basophils % 0.5 % (0.0-1.0) 05/16/20 22:48 Neutrophils # 6.7 thou/uL (1.40-6.50) H 05/16/20 22:48 Lymphocytes # 2.2 thou/uL (1.20-3.40) 05/16/20 22:48 Monocytes # 0.6 thou/uL (0.11-0.59) H 05/16/20 22:48 Eosinophils # 0.1 thou/uL (0.0-0.7) 05/16/20 22:48 Basophils # 0.0 thou/uL (0.0-0.2) 05/16/20 22:48 Sodium 140 mmol/L (136-145) 05/16/20 22:48 Potassium 3.6 mmol/L (3.5-5.1) 05/16/20 22:48 Chloride 105 mmol/L (98-107) 05/16/20 22:48 Carbon Dioxide 27 mmol/L (22-29) 05/16/20 22:48 Anion Gap 12 mmol/L (10-20) 05/16/20 22:48 BUN 12 mg/dL (7.0-18.7) 05/16/20 22:48 Creatinine 0.78 mg/dL (0.6-1.1) 05/16/20 22:48 Estimated GFR (MDRD) 79 05/16/20 22:48 Glucose 108 mg/dL (70-105) H 05/16/20 22:48 Calcium 8.8 mg/dL (7.8-10.44) 05/16/20 22:48 Total Bilirubin 0.2 mg/dL (0.2-1.2) 05/16/20 22:48 AST 21 U/L (5-34) 05/16/20 22:48 ALT 30 U/L (8-55) 05/16/20 22:48 Alkaline Phosphatase 68 U/L (40-110) 05/16/20 22:48 Troponin I Less than 0.010 ng/mL (< 0.028) 05/16/20 22:48 Serum Total Protein 7.6 g/dL (6.0-8.3) 05/16/20 22:48 Albumin 4.0 g/dL (3.5-5.0) 05/16/20 22:48 Globulin 3.6 g/dL (2.4-3.5) H 05/16/20 22:48 Albumin/Globulin Ratio 1.1 g/dL (1.2-2.2) L 05/16/20 22:48 Hospitalist H&P A/P Plan: This is a 45-year-old male patient with a history of hypertension presenting with recurrent episodes of chest pain. -Chest pain With typical and atypical features Heart score is 4 We will admit for stress test in a.m. Keep n.p.o. Consider cardiology evaluation. CODE STATUSfull code DVT prophylaxislow
[2020-05-17 08:31] LABS: Troponin I Less than 0.010 ng/mL (< 0.028)
[2020-05-17 08:33] LABS: Troponin I Less than 0.010 ng/mL (< 0.028)
[2020-05-17] MEDS ORDERED: Acetaminophen 325 MG TAB PO PRN (09:16)
[2020-05-17] MEDS ORDERED: Nitroglycerin 0.4 MG TAB (25 Tab Bottle) SL PRN (09:17)
--- NOTE | 2020-05-17 09:35 | PDOC.EVN ---
Event Note - Event Note Event Note: Patient's history reviewed. Patient was seen and examined. Her past medical history is notable for significant endometriosis requiring surgery on several occasions including a partial hysterectomy. She has a significant family history of coronary disease. She has no history of tobacco abuse. Patient reports that she continues to intermittently have some pain in the left parasternal area radiating up into the left trapezius area. Her heart is regular rate and rhythm without murmurs. Her troponins are negative x3. Her blood pressure has been running a bit on the low side. She was actually in the upper 80s at the time of my exam although she appears to be completely as ymptomatic with that. I suspect the cough that is being used is a little too big for her arm. Of asked the nurse to do a manual blood pressure check and let me know the results. I have also ordered a treadmill Cardiolite for the patient. She believes she will be okay walking on the treadmill.
[2020-05-17] MEDS ORDERED: Aspirin Chewable 81 MG TAB PO SCH (09:45)
[2020-05-17] MEDS ORDERED: Aspirin Chewable 81 MG TAB ONE (11:52)
--- NOTE | 2020-05-17 12:04 | NM ---
Radionucleotide stress only myocardial perfusion scan with CT attenuation correction and SPECT imagin g Left ventricular wall motion evaluation and ejection fraction HISTORY: Chest pain. FINDINGS: Wander protocol. Total test time 4:01. Maximum heart rate 164 bpm. Heterogeneous uptake of radiotracer throughout the left ventricular myocardium. No focal perfusion de fect. QGS analysis of gated SPECT images shows no focal wall motion abnormalities. LHR 38%. Left ventricular ejection fraction calculated at 71%. IMPRESSION : No evidence of ischemia. Normal LVEF.
[2020-05-17 15:17] LABS: SARS-CoV-2 PCR by NAA Not Detected (NotDetected)
[2020-05-18] MEDS ORDERED: Aspirin Chewable 81 MG TAB PO SCH (09:00)
--- NOTE | 2020-05-18 16:29 | PDOC.DS.DS ---
Provider Date of Admission: 05/17/20 01:19 Date of Discharge: 05/17/20 Admitting Provider: Orlando Hernandez MD Primary Care Physician: DO Nata Martinez Hospital Course: Is a 45-year-old female who presented to the emergency department complaining of some pain in her left parasternal chest that radiated up to the left shoulder and trapezius area. In the emergency department the patient had negative troponin and nonischemic EKG. She remained on telemetry and ultimately had 3 - troponins. She subsequently underwent treadmill Cardiolite testing which revealed an ejection fraction of 71% and no evidence of ischemia. With that the patient was felt to be stable for discharge to home for outpatient follow-up. Lab Results: 05/16/20 22:48 05/16/20 22:48 Abnormal Lab Results - Last 48 hrs 05/16/20 22:48: RDW 11.1 L, Plt Count 527 H, MPV 6.8 L, Neutrophils # 6.7 H, Monocytes # 0.6 H 05/16/20 22:48: Globulin 3.6 H, Albumin/Globulin Ratio 1.1 L Physical Exam: The patient was seen and examined on the day of discharge. General Appearance: NAD, awake alert Respiratory: CTAB, no wheezes, no rales, no ronchi, normal chest expansion Cardiovascular: RRR, no murmur, no gallops, no rubs Gastrointestinal: soft, non-tender, non-distended, normal bowel sounds, no palpable masses Extremities: no cyanosis, no clubbing, no edema Skin: normal turgor Neurological: no focal deficits Musculoskeletal: normal tone, normal strength, no muscle wasting PSYCH: normal affect, normal behavior, A&O x 3 Problem (1) Chest pain Code(s): R07.9 - CHEST PAIN, UNSPECIFIED Status: Acute (2) HTN (hypertension) Code(s): I10 - ESSENTIAL (PRIMARY) HYPERTENSION Status: Acute (3) Type 2 diabetes mellitus Status: Acute Plan Home Medications: Medication Instructions Recorded Confirmed Type Ibuprofen [Motrin] 800 mg PO Q8H #30 tab 01/31/19 02/04/19 Rx Promethazine [Phenergan] 12.5 mg PO Q6H PRN #20 tab 01/31/19 02/01/19 Rx HYDROcodone Bit/APAP 10/325 [Iva] 1 tab PO Q6H PRN tab 02/05/19 Rx HYDROcodone Bit/APAP 10/325 [Iva] 2 tab PO Q6H PRN tab 02/05/19 Rx DULoxetine HCl [Cymbalta] 60 mg PO DAILY 05/17/20 05/17/20 History Lisinopril 40 mg PO DAILY 05/17/20 05/17/20 History Allergies: morphine Allergy (Intermediate, Verified 02/01/19 11:32) ITCHING Activity:: Activity as Tolerated Nourishment:: Heart Healthy Diet Referrals: Maribell Pendleton DO [Primary Care Provider] - Disposition: HOME Quality CORE MEASURES:: N/A
--- NOTE | 2020-05-24 13:23 | EKG ---
Test Reason : Blood Pressure : / mmHG Vent. Rate : 094 BPM Atrial Rate : 094 BPM P-R Int : 128 ms QRS Dur : 086 ms QT Int : 354 ms P-R-T Axes : 023 004 013 degrees QTc Int : 442 ms Normal sinus rhythm Cannot rule out Inferior infarct , age undetermined Abnormal ECG Confirmed by KAMALA WALKER ([id number]), associate entertainment editor DIXON DYE ([id number]) on 05/24/2020 1:22:54 PM Referred By: Confirmed By:KAMALA Hodgson
== END 2020-05-17 15:16 | disposition home or self-care (01) ==
LOC: ERS 22:21 → ERHOLD 05-17 01:19
PROVIDERS: ADMIT Student in an Organized Health Care Education/Training Program; ATTEND Internal Medicine
DX: R07.89 Other chest pain (principal); I10 Essential (primary) hypertension; E11.9 Type 2 diabetes mellitus without complications; F41.9 Anxiety disorder, unspecified; Z79.899 Other long term (current) drug therapy; Z88.5 Allergy status to narcotic agent; Z20.822 Contact with and (suspected) exposure to COVID-19
CPT/HCPCS: 71045; 78452; 80053; 84484; 85025; 87635; 93005; 93017; G0378; U0003; U0005

== ENCOUNTER 2020-08-09 10:25 | Observation (INO) | payer BC ==
[2020-08-09 11:48] LABS: #Basophils 0.1 thou/uL (0.0-0.2); #Eosinphils 0.2 thou/uL (0.0-0.7); #Lymphocytes 2.4 thou/uL (1.20-3.40); #Monocytes 0.7 thou/uL (0.11-0.59); #Neutrophils 7.8 thou/uL (1.40-6.50); %Eosinophils 1.9 % (0.0-10.0); %Lymphocytes 21.3 % (21.0-51.0); %Monocytes 6.1 % (0.0-10.0); %Neutrophils 69.7 % (42.0-75.0); Hemoglobin 14.4 g/dL (12.0-16.0); Mean Corpuscular HGB CONC 33.1 g/dL (32.0-36.0); Mean Corpuscular Hemoglobin 30.7 pg (27.0-31.0); Mean Platelet Volume 6.7 fL (7.4-10.4); Platelet Count 520 thou/uL (130-400); RBC Distribution Width 11.2 % (11.5-14.5); Red Blood Cell (RBC) Count 4.69 mill/uL (4.20-5.40); White Blood Cell (WBC) Count 11.2 thou/uL (4.8-10.8)
[2020-08-09 12:15] LABS: ALT (SGPT) 35 U/L (8-55); AST (SGOT) 26 U/L (5-34); Albumin 4.4 g/dL (3.5-5.0); Alkaline Phosphatase 74 U/L (40-110); Anion Gap 12 mmol/L (10-20); BUN (Urea Nitrogen) 12 mg/dL (7.0-18.7); Bilirubin, Total 0.4 mg/dL (0.2-1.2); Calc. Creatinine Clearance 0 mL/min (70-130); Calcium 10.2 mg/dL (7.8-10.44); Carbon Dioxide 27 mmol/L (22-29); Chloride 102 mmol/L (98-107); Globulin 3.8 g/dL (2.4-3.5); Glucose 99 mg/dL (70-105); Lipase 82 U/L (8-78); Potassium 3.7 mmol/L (3.5-5.1); Protein, Total 8.2 g/dL (6.0-8.3); Sodium 137 mmol/L (136-145)
[2020-08-09] MEDS ORDERED: Fentanyl 100 MCG/2 ML VIAL ONE (12:17)
[2020-08-09 13:55] LABS: Troponin I Less than 0.010 ng/mL (< 0.028)
[2020-08-09] MEDS ORDERED: Nitroglycerin 0.4 MG TAB (25 Tab Bottle) SL PRN (14:13)
[2020-08-09] MEDS ORDERED: Acetaminophen 325 MG TAB PO PRN (14:13)
[2020-08-09] MEDS ORDERED: Aspirin 325 MG TAB PO SCH (14:15)
[2020-08-09 17:09] LABS: Troponin I Less than 0.010 ng/mL (< 0.028)
[2020-08-09 18:27] VITALS: BMI 38.9
[2020-08-09] MEDS ORDERED: Fentanyl 100 MCG/2 ML VIAL SLOW IVP SCH (20:00)
[2020-08-09 22:33] LABS: SARS-CoV-2 PCR by NAA Not Detected (NotDetected)
[2020-08-09] MEDS ORDERED: Dextrose 5% in Water 1,000 ML IV PRN (23:41)
[2020-08-09] MEDS ORDERED: Dextrose 50% Abboject 50 ML SYRINGE SLOW IVP PRN (23:41)
[2020-08-10 00:06] LABS: Hemoglobin A1c 6.1 % (4.0-6.0)
[2020-08-10 05:29] LABS: #Basophils 0.1 thou/uL (0.0-0.2); #Eosinphils 0.3 thou/uL (0.0-0.7); #Lymphocytes 2.5 thou/uL (1.20-3.40); #Monocytes 0.5 thou/uL (0.11-0.59); #Neutrophils 5.1 thou/uL (1.40-6.50); %Basophils 1.3 % (0.0-1.0); %Eosinophils 3.3 % (0.0-10.0); %Lymphocytes 29.2 % (21.0-51.0); %Monocytes 6.1 % (0.0-10.0); Hemoglobin 13.3 g/dL (12.0-16.0); Mean Corpuscular HGB CONC 32.3 g/dL (32.0-36.0); Mean Corpuscular Volume 92.8 fL (78.0-98.0); Mean Platelet Volume 6.8 fL (7.4-10.4); Platelet Count 405 thou/uL (130-400); RBC Distribution Width 11.3 % (11.5-14.5); Red Blood Cell (RBC) Count 4.44 mill/uL (4.20-5.40); White Blood Cell (WBC) Count 8.5 thou/uL (4.8-10.8)
[2020-08-10 05:36] LABS: Anion Gap 15 mmol/L (10-20); BUN (Urea Nitrogen) 13 mg/dL (7.0-18.7); Calc. Creatinine Clearance 152 mL/min (70-130); Calcium 8.9 mg/dL (7.8-10.44); Carbon Dioxide 27 mmol/L (22-29); Chloride 99 mmol/L (98-107); Glucose 99 mg/dL (70-105); Potassium 3.5 mmol/L (3.5-5.1); Sodium 137 mmol/L (136-145)
[2020-08-10] MEDS: Propranolol 10 MG TAB PO SCH ×2 (08:57→14:38)
[2020-08-10] MEDS ORDERED: Chlorthalidone 25 MG TAB PO SCH (09:00)
[2020-08-10] MEDS ORDERED: DULoxetine 60 MG CAP PO SCH (09:00)
[2020-08-10] MEDS ORDERED: Lisinopril 20 MG TAB PO SCH (09:00)
[2020-08-10] MEDS ORDERED: Aspirin Chewable 81 MG TAB PO SCH (09:00)
[2020-08-10] MEDS ORDERED: Iopamidol 370 76% 100 ML VIAL ONE (11:32)
[2020-08-10] MEDS ORDERED: Lidocaine 1% (PF) 30 ML VIAL ONE (12:46)
[2020-08-10] MEDS ORDERED: Midazolam HCl 2 mg/2 ml Vial ONE (12:52)
[2020-08-10] MEDS ORDERED: Fentanyl 100 MCG/2 ML VIAL ONE (12:52)
[2020-08-10] MEDS ORDERED: Nitroglycerin 100MG/250ML BOT 250 ML ONE (12:52)
[2020-08-10] MEDS ORDERED: Verapamil 5 MG/2 ML VIAL ONE ×2 (13:18→13:19)
[2020-08-10] MEDS ORDERED: Heparin 10,000 UNITS/ 10 ML VIAL ONE ×2 (13:18→13:19)
[2020-08-10] MEDS ORDERED: Sodium Chloride 0.9% 200 ML IV PRN (14:04)
[2020-08-10] MEDS ORDERED: Sodium Chloride 0.9% 500 ML IV SCH (14:15)
[2020-08-10 14:37] VITALS: BP 102/55; TEMP 98.2
== END 2020-08-10 17:50 | disposition home or self-care (01) ==
LOC: ERS 10:25 → ERHOLD 13:10 → 2SW 18:33
PROVIDERS: ADMIT Hospitalist; ATTEND Internal Medicine
PROC: 4A023N7 Measurement of Cardiac Sampling and Pressure, Left Heart, Percutaneous Approach (ICD-10-PCS; principal; 2020-08-10)
PROC: B2111ZZ Fluoroscopy of Multiple Coronary Arteries using Low Osmolar Contrast (ICD-10-PCS; 2020-08-10)
DX: R07.89 Other chest pain (principal); E11.9 Type 2 diabetes mellitus without complications; E78.5 Hyperlipidemia, unspecified; I10 Essential (primary) hypertension; K21.9 Gastro-esophageal reflux disease without esophagitis; K76.0 Fatty (change of) liver, not elsewhere classified; K80.20 Calculus of gallbladder without cholecystitis without obstruction; Z87.891 Personal history of nicotine dependence; Z79.899 Other long term (current) drug therapy; Z88.5 Allergy status to narcotic agent; Z20.822 Contact with and (suspected) exposure to COVID-19
CPT/HCPCS: 36415; 36416; 71045; 76705; 76942; 80048; 80053; 83036; 83690; 84484; 85025; 85379; 87635; 93005; 93458; 94760; 96374; 96375; 99152; 99153; G0378; J1644; J2001; J2250; J3010; Q9967; U0003; U0005

== ENCOUNTER 2022-11-11 09:50 | Outpatient (CLI) | payer OTHER | END 2022-11-11 09:51 | disposition home or self-care (01) | LOC: BICMAMMO 09:50 | PROVIDERS: ATTEND Family Medicine | DX: N64.4 Mastodynia (principal) | CPT/HCPCS: 77066; G0279 ==